=== PATIENT | female | born 1960 | race American Indian/Alaskan Native ===

== ENCOUNTER 2021-09-17 15:45 | Emergency (ER) | payer OTHER ==
[~2021-09-17] VITALS: Ht 162.6 cm; Wt 81.7 kg
[~2021-09-17 15:45] MED LIST: AMOX500 PO; HYDACE5 PO; IBUP800 PO; PENVK500 PO
== END 2021-09-17 16:05 | disposition home or self-care (01) ==
LOC: ER 15:45
DX: S09.90XA Unspecified injury of head, initial encounter (principal); S00.31XA Abrasion of nose, initial encounter; S02.5XXA Fracture of tooth (traumatic), initial encounter for closed fracture; W01.198A Fall on same level from slipping, tripping and stumbling with subsequent striking against other object, initial encounter
CPT/HCPCS: 99283